=== PATIENT | female | born 1980 | race African-American/Black ===

== ENCOUNTER 2018-12-26 05:40 | Inpatient (IN) | payer MEDICAID ==
[~2018-12-26] VITALS: Ht 170.2 cm; Wt 104.3 kg
[2018-12-26] MEDS ORDERED: DEXT 5%/LR + PITOCIN 20UNITS/L 1,000 ML IV SCH ×2 (06:28→13:19)
[2018-12-26] MEDS ORDERED: METHYLERGONOVINE MALEATE 0.2 MG/ML IM PRN (06:30)
[2018-12-26] MEDS ORDERED: CARBOPROST TROMETHAMINE 250 MCG/ML AMPUL IM PRN (06:30)
[2018-12-26] MEDS ORDERED: CITRIC ACID/SODIUM CITRATE SOLN 30ML UDC PO NR (06:45)
[2018-12-26] MEDS ORDERED: FERR-71 MT (06:53)
[2018-12-26] MEDS ORDERED: PREN1TAB78 MT (06:53)
[2018-12-26 07:06] LABS: BASOPHILS % 1.2 % (0.0-2.0); EOSINOPHILS % 0.6 % (0.0-5.0); HEMOGLOBIN. 13.9 g/dL (12.0-16.0); LYMPHOCYTES % 21.5 % (20.0-50.0); MEAN CORPUSCULAR HEMOGLOBIN 30.9 pg (28.0-32.0); MEAN PLATELET VOLUME 9.8 fl (7.4-10.4); MONOCYTES % 4.9 % (2.0-8.0); NEUTROPHILS % 71.8 % (40.0-76.0); PLATELET 189 x1000/uL (130-400); RED BLOOD CELL COUNT 4.51 mill/uL (4.2-5.4); RED CELL DISTRIBUTION WIDTH 14.5 % (11.6-14.6)
[2018-12-26 07:13] LABS: PARTIAL THROMBOPLASTIN TIME 27.9 sec (23.4-31.0)
[2018-12-26] MEDS: LACTATED RINGERS 1,000 ML IV SCH ×3 (07:46→11:24)
[2018-12-26 07:49] LABS: CLARITY URINE CLOUDY (CLEAR); COLOR URINE YELLOW (YELLOW); KETONES URINE 3+ (NEGATIVE); LEUKOCYTE ESTERASE URINE NEGATIVE (NEGATIVE); NITRITE URINE NEGATIVE (NEGATIVE); OCCULT BLOOD URINE NEGATIVE (NEGATIVE); PROTEIN URINE TRACE (NEGATIVE); SPECIFIC GRAVITY URINE 1.017 (1.005-1.030)
[2018-12-26 10:43] LABS: *AMPHETAMINES SCREEN URINE NEGATIVE (NEGATIVE); *BARBITURATES SCREEN URINE NEGATIVE (NEGATIVE); *BENZODIAZEPINES SCREEN URINE NEGATIVE (NEGATIVE); *COCAINE SCREEN URINE NEGATIVE (NEGATIVE); METHADONE URINE SCREEN NEGATIVE (NEGATIVE)
[2018-12-26 10:44] LABS: CANNABINOID URINE SCREEN NEGATIVE (NEGATIVE); OPIATES URINE SCREEN NEGATIVE (NEGATIVE); PHENCYCLIDINE URINE SCREEN NEGATIVE (NEGATIVE)
[2018-12-26] MEDS ORDERED: DIPHENHYDRAMINE 50MG/ML VIAL ONE (12:22)
[2018-12-26] MEDS ORDERED: KETOROLAC 60MG/2ML VIAL IM ONE (12:22)
[2018-12-26] MEDS ORDERED: KETOROLAC 30MG/ML VIAL IV PRN (13:00)
[2018-12-26] MEDS ORDERED: DIPHENHYDRAMINE 50MG/ML VIAL IV PRN (13:00)
[2018-12-26] MEDS ORDERED: NALOXONE HCL 0.4 MG/ML 1ML VIAL IV PRN (13:00)
[2018-12-26] MEDS ORDERED: BISACODYL 10MG SUPP PR PRN (13:30)
[2018-12-26] MEDS ORDERED: ACETAMINOPHEN WITH CODEINE 300/30MG TABLET PO PRN (13:30)
[2018-12-26] MEDS ORDERED: RHO(D) IMMUNE GLOBULIN 300 MCG/SYR IM PRN (13:30)
[2018-12-26] MEDS ORDERED: HYDROMORPHONE HCL/PF 2MG/ML CPJ IM PRN (13:30)
[2018-12-26] MEDS ORDERED: IBUPROFEN 400MG TABLET PO PRN (13:30)
[2018-12-26 14:36] LABS: HEPATITIS B SURFACE ANTIGEN NEGATIVE
[2018-12-26 15:20] VITALS: BP 113/64
[2018-12-26 15:48] LABS: BASOPHILS % 0.6 % (0.0-2.0); EOSINOPHILS % 0.1 % (0.0-5.0); HEMATOCRIT. 37.8 % (36.0-48.0); HEMOGLOBIN. 12.7 g/dL (12.0-16.0); LYMPHOCYTES % 11.2 % (20.0-50.0); MEAN CORPUSCULAR HEMOGLOBIN 30.8 pg (28.0-32.0); MEAN CORPUSCULAR VOLUME 91.7 fL (81.0-99.0); MEAN PLATELET VOLUME 9.3 fl (7.4-10.4); MONOCYTES % 3.9 % (2.0-8.0); NEUTROPHILS % 84.2 % (40.0-76.0); PLATELET 161 x1000/uL (130-400); RED BLOOD CELL COUNT 4.12 mill/uL (4.2-5.4); RED CELL DISTRIBUTION WIDTH 14.7 % (11.6-14.6)
[2018-12-26 15:50] VITALS: BP 108/58
[2018-12-26 15:54] LABS: PARTIAL THROMBOPLASTIN TIME 29.5 sec (23.4-31.0)
[2018-12-26 16:20] VITALS: BP 98/53
[2018-12-26 16:22] LABS: HEPATITIS B SURFACE ANTIGEN NEGATIVE
[2018-12-26 22:00] VITALS: BP 100/63
[2018-12-27 07:11] LABS: BASOPHILS % 0.8 % (0.0-2.0); EOSINOPHILS % 1.2 % (0.0-5.0); HEMATOCRIT. 39.7 % (36.0-48.0); HEMOGLOBIN. 13.4 g/dL (12.0-16.0); LYMPHOCYTES % 18.9 % (20.0-50.0); MEAN CORPUSCULAR HEMOGLOBIN 30.9 pg (28.0-32.0); MEAN CORPUSCULAR VOLUME 91.7 fL (81.0-99.0); MEAN PLATELET VOLUME 9.6 fl (7.4-10.4); MONOCYTES % 6.5 % (2.0-8.0); NEUTROPHILS % 72.6 % (40.0-76.0); PLATELET 183 x1000/uL (130-400); RED BLOOD CELL COUNT 4.33 mill/uL (4.2-5.4); RED CELL DISTRIBUTION WIDTH 14.5 % (11.6-14.6)
[2018-12-27 07:42] VITALS: BP 101/60
[2018-12-27] MEDS: IBUPROFEN 800MG TABLET PO PRN ×2 (12:31→19:47)
[2018-12-27 16:29] VITALS: BP 91/52
[2018-12-27 19:45] VITALS: BP 100/56
[2018-12-28 04:18] VITALS: BP 115/72
[2018-12-28 07:43] VITALS: BP 106/70
[2018-12-28] MEDS: IBUPROFEN 800MG TABLET PO PRN (15:59)
[2018-12-28 16:10] VITALS: BP 122/84
[2018-12-28 19:10] VITALS: BP 119/76
[2018-12-28 23:45] VITALS: BP 121/76
[2018-12-29 04:00] VITALS: BP 120/78
[2018-12-29 08:03] VITALS: BP 110/63
== END 2018-12-29 12:30 | disposition home or self-care (01) | DRG 540 ==
LOC: 8 EST LDRP 05:40 → OBSVTOIN 05:40 → 8EST 19:00
PROVIDERS: ADMIT Obstetrics & Gynecology; ATTEND Obstetrics & Gynecology
PROC: 0JB80ZX Excision of Abdomen Subcutaneous Tissue and Fascia, Open Approach, Diagnostic (ICD-10-PCS; principal; 2018-12-26)
PROC: 10D00Z1 Extraction of Products of Conception, Low, Open Approach (ICD-10-PCS; 2018-12-26)
PROC: 0UB70ZZ Excision of Bilateral Fallopian Tubes, Open Approach (ICD-10-PCS; 2018-12-26)
DX: O34.211 Maternal care for low transverse scar from previous cesarean delivery (principal); D21.4 Benign neoplasm of connective and other soft tissue of abdomen; O99.72 Diseases of the skin and subcutaneous tissue complicating childbirth; Z30.2 Encounter for sterilization; Z37.0 Single live birth; Z3A.39 39 weeks gestation of pregnancy; Z83.3 Family history of diabetes mellitus; Z82.49 Family history of ischemic heart disease and other diseases of the circulatory system
CPT/HCPCS: 36415; 80305; 86592; 86703; 86762; 86850; 86900; 87340; 88302; 88307; J1200; J1885; J2590; J7120; A4315